=== PATIENT | male | born 1955 | race Caucasian/White ===

== ENCOUNTER 2017-04-07 16:12 | Emergency (ER) | payer MEDICARE, OTHER ==
[~2017-04-07] VITALS: Ht 165.1 cm; Wt 86.0 kg
[2017-04-07 16:33] VITALS: Ht 165.1 cm; Wt 86.0 kg
[2017-04-07] MEDS ORDERED: ONDANSETRON (ODT) 4 MG TAB ODT STA (17:42)
[2017-04-07] MEDS ORDERED: HYDROCODONE/APAP (10/325) TAB PO ONE (18:00)
--- NOTE | 2017-04-07 18:07 | RADRPT ---
PROCEDURE: US DVT. CLINICAL INDICATION: Evaluate right lower extremity for deep venous thrombosis. TECHNIQUE: Multiple longitudinal and transverse images of the right lower extremity veins were obt ained with paulson scale and color Doppler imaging. 2D grayscale measurements with compression, color Doppler flow, and augmentation was performed. The calf veins were interrogated as well. COMPARISON: No prior studies are available for comparison. FINDINGS: The right common femoral, superficial femoral and popliteal veins are normally compressible througho ut. Color flow demonstrates normal filling of the vessel. Normal waveforms are visualized and ther e is normal response to augmentation. IMPRESSION: 1. No evidence of a deep vein thrombosis involving the right lower extremity. RPTAT: [facility] Physician Amarilys Date Time Electronically viewed and signed by Physician Amarilys on 04/07/2017 18:07 /
[2017-04-07] MEDS ORDERED: CLIN-73 PO (19:12)
[2017-04-07] MEDS ORDERED: HYDR-906 PO (19:12)
[2017-04-07] MEDS ORDERED: IBUP-1542 PO (19:13)
--- NOTE | 2017-04-07 19:19 | ERA ---
ER Documentation Chief Complaint Date/Time DATE: 04/07/17 Chief Complaint RIGHT LEG SWELLING X 10 DAYS HPI The patient is a 62-year-old male, presenting to the ER because of right leg swelling for 10 days. He denies similar symptoms previously. He was sent from his doctor's office to the ER to rule out deep vein thrombosis. He denies fever , chills, neck pain, chest pain, dyspnea, abdominal pain, vomiting, dysuria, diarrhea, constipation. He does not smoke or drink, denies any recent travel Past medical/surgical history: None ROS All systems reviewed and are negative except as per history of present illness. Medications Home Meds Active Scripts Ibuprofen* (Motrin*) 600 Mg Tab, 600 MG PO Q6H Y for PAIN AND OR ELEVATED TEMP, #30 TAB Prov:LINNEA ACE MD 04/07/17 Hydrocodone/Acetaminophen ([place] 5-325 Tablet) 1 Each Tablet, 1 TAB PO Q6H Y for PAIN, #7 TAB Prov:LINNEA ACE MD 04/07/17 Clindamycin Hcl* (Clindamycin Hcl*) 300 Mg Capsule, 300 MG PO QID for 10 Days, CAP Prov:LINNEA ACE MD 04/07/17 PMhx/Soc Medical and Surgical Hx: pt denies Medical Hx, pt denies Surgical Hx History of Surgery: No Anesthesia Reaction: No Hx Neurological Disorder: No Hx Respiratory Disorders: No Hx Cardiac Disorders: No Hx Psychiatric Problems: No Hx Miscellaneous Medical Probl: No Hx Alcohol Use: No Hx Substance Use: No Hx Tobacco Use: No Smoking Status: Unknown if ever smoked Physical Exam Vitals Vital Signs Date Time Temp Pulse Resp B/P Pulse Ox O2 Delivery O2 Flow Rate FiO2 04/07/17 16:33 97.8 65 16 165/90 98 Physical Exam Const: No acute distress. Head: Atraumatic. Eyes: Normal Conjunctiva. ENT: Normal External Ears, Nose and Mouth. Neck: Full range of motion. No meningismus. Resp: Clear to auscultation bilaterally. Cardio: Regular rate and rhythm, no murmurs. Abd: Soft, non distended, normal bowel sounds, non tender. Skin: No petechiae or rashes. Back: No midline or flank tenderness. Ext: Right lower extremity is mild edema, mild calf tenderness, minimally warm to touch on the dorsal aspect of the foot Neur: Awake and alert. No focal deficit Psych: Normal Mood and Affect. Results 24 hrs Current Medications Medications (Trade) Dose Ordered Sig/[place] Route PRN Reason Start Time Stop Time Status Last Admin Dose Admin Acetaminophen/ Hydrocodone Bitart ([place] ()) 1 tab ONCE ONCE PO 04/07/17 18:00 04/07/17 18:01 DC 04/07/17 17:48 Ondansetron HCl (Zofran Odt) 4 mg ONCE STAT ODT 04/07/17 17:42 04/07/17 17:43 DC Procedures/[place] [id number] Radiology Main Line: [phone] DIAGNOSTIC IMAGING REPORT Patient: TAIWO THORNTON : 1955 Age: 62 Sex: M MR #: [id number] DOS: 04/07/17 1739 Ordering MD: LINNEA ACE MD Location: E/R Room/Bed: PROCEDURE: US DVT. CLINICAL INDICATION: Evaluate right lower extremity for deep venous thrombosis. TECHNIQUE: Multiple longitudinal and transverse images of the right lower extremity veins were obtained with paulson scale and color Doppler imaging. 2D grayscale measurements with compression, color Doppler flow, and augmentation was performed. The calf veins were interrogated as well. COMPARISON: No prior studies are available for comparison. FINDINGS: The right common femoral, superficial femoral and popliteal veins are normally compressible throughout. Color flow demonstrates normal filling of the vessel. Normal waveforms are visualized and there is normal response to augmentation. IMPRESSION: 1. No evidence of a deep vein thrombosis involving the right lower extremity. RPTAT: [facility] Physician Amarilys Date Time Electronically viewed and signed by Physician Amarilys on 04/07/2017 18: 07 JH/ CC: LINNEA ACE MD MEDICAL MAKING DECISION: The patient is a 62-year-old male, presenting with acute right leg edema and cellulitis. He was treated with [place] 10 mg p.o. for pain and Zofran ODT for nausea with good response The differential diagnoses considered include but are not limited to DVT, lymphedema, hepatic insufficiency , renal insufficiency Departure Diagnosis: Primary Impression: Cellulitis Additional Impression: Leg edema, right Condition: Good Patient Instructions: Cellulitis, Peripheral Edema, Unilateral Additional Instructions: Call your primary care doctor TOMORROW for an appointment during the next 2-3 days.See the doctor sooner or return here if your condition worsens before your appointment time. He was discharged with clindamycin, Motrin, LINNEA Godinez MD April 07, 2017 19:18
[2017-04-07 19:25] VITALS: BP 146/52; PULSE 72; RESP 20; TEMP 98.7
== END 2017-04-07 19:27 | disposition home or self-care (01) ==
LOC: E/R 16:12
DX: L03.116 Cellulitis of left lower limb (principal); R60.0 Localized edema
CPT/HCPCS: 93971